=== PATIENT | male | born 1950 | race Caucasian/White ===

== ENCOUNTER 2017-06-22 06:03 | Emergency (ER) | payer MEDICARE ==
[2017-06-22 06:26] LABS: #Basophils 0.1 thou/uL (0.0-0.2); #Eosinphils 0.5 thou/uL (0.0-0.7); #Lymphocytes 2.7 thou/uL (1.20-3.40); #Neutrophils 7.6 thou/uL (1.40-6.50); %Basophils 0.7 % (0.0-1.0); %Eosinophils 3.9 % (0.0-10.0); %Lymphocytes 22.7 % (21.0-51.0); %Monocytes 8.6 % (0.0-10.0); %Neutrophils 64.1 % (42.0-75.0); Hemoglobin 15.3 g/dL (14.0-18.0); Mean Corpuscular HGB CONC 32.8 g/dL (32.0-36.0); Mean Corpuscular Hemoglobin 28.3 pg (27.0-31.0); Mean Corpuscular Volume 86.4 fl (80.0-94.0); Mean Platelet Volume 9.4 fL (7.4-10.4); Platelet Count 239 thou/uL (130-400); RBC Distribution Width 13.1 % (11.5-14.5); Red Blood Cell (RBC) Count 5.39 mill/uL (4.70-6.10); White Blood Cell (WBC) Count 11.8 thou/uL (4.8-10.8)
[2017-06-22 06:50] LABS: CKMB 1.4 ng/mL (0-6.6); Troponin I 0.011 ng/mL (< 0.028)
[2017-06-22 06:50] LABS: Bilirubin Negative (Negative); Blood, Urine Negative (Negative); Clarity CLEAR (Clear); Glucose, Urine (Dipstick) Negative (Negative); Leukocyte Negative (Negative); Nitrite Negative (Negative); Protein, Urine (Dipstick) Negative (Neg-Trace); Specific Gravity, Urine 1.021 (1.002-1.036); Urobilinogen 0.2 mg/dL (0.2-1.0); pH, Urine 5.5 (5.0-9.0)
[2017-06-22 06:53] LABS: ALT (SGPT) 48 U/L (8-55); AST (SGOT) 32 U/L (5-34); Albumin 4.3 g/dL (3.4-4.8); Alkaline Phosphatase 82 U/L (40-150); Anion Gap 16 mmol/L (10-20); BUN (Urea Nitrogen) 16 mg/dL (8.4-25.7); Bilirubin, Total 0.4 mg/dL (0.2-1.2); CK (CPK) 147 U/L (30-200); Calc. Creatinine Clearance 0 mL/min (70-130); Calcium 9.4 mg/dL (7.8-10.44); Carbon Dioxide 25 mmol/L (23-31); Chloride 101 mmol/L (98-107); Estimated GFR-MDRD 69; Globulin 3.2 g/dL (2.4-3.5); Glucose 119 mg/dL (80-115); Lipase 19 U/L (8-78); Potassium 4.1 mmol/L (3.5-5.1); Protein, Total 7.5 g/dL (5.8-8.1); Sodium 138 mmol/L (136-145)
--- NOTE | 2017-06-22 08:08 | RAD ---
CHEST ONE VIEW: History: Dyspnea. Comparison: 08-08-16 FINDINGS: Normal cardiac silhouette. The lungs and pleural spaces are clear. No pneumothorax or osseous abnorma lities. IMPRESSION: No acute cardiopulmonary process. POS: [facility]
[2017-06-22] MEDS ORDERED: Ondansetron HCl/PF 4 MG/2 ML Vial ONE (09:30)
[2017-06-22] MEDS ORDERED: Ondansetron ODT 8 MG TAB ONE (09:31)
--- NOTE | 2017-06-24 13:04 | EKG ---
Test Reason : Blood Pressure : / mmHG Vent. Rate : 080 BPM Atrial Rate : 080 BPM P-R Int : 132 ms QRS Dur : 092 ms QT Int : 364 ms P-R-T Axes : 009 -17 031 degrees QTc Int : 419 ms Normal sinus rhythm Normal ECG Confirmed by GOKUL IBARRA, MADELYN ([id number]), editorial specialist HODAN MALDONADO ([id number]) on 06/24/2017 1:04:21 PM Referred By: Confirmed By:MADELYN HODGSON MD
== END 2017-06-22 09:36 | disposition home or self-care (01) ==
LOC: ERS 06:03
DX: J20.9 Acute bronchitis, unspecified (principal); F20.9 Schizophrenia, unspecified
CPT/HCPCS: 71045; 80053; 81003; 82553; 83605; 83690; 83880; 84484; 85025; 85379; 87040; 87804; 93005; 94640; 96360; J2405; J7620

== ENCOUNTER 2018-04-03 19:30 | Outpatient (CLI) | payer MEDICARE, OTHER | END 2018-04-03 19:31 | disposition home or self-care (01) | LOC: SLEEPLAB 19:30 | PROVIDERS: ATTEND Nurse Practitioner Adult Health | DX: G47.33 Obstructive sleep apnea (adult) (pediatric) (principal); R53.83 Other fatigue; R09.89 Other specified symptoms and signs involving the circulatory and respiratory systems; G31.84 Mild cognitive impairment of uncertain or unknown etiology; R06.83 Snoring; J44.9 Chronic obstructive pulmonary disease, unspecified; E66.9 Obesity, unspecified; G47.10 Hypersomnia, unspecified; Z68.36 Body mass index [BMI] 36.0-36.9, adult | CPT/HCPCS: 95811 ==

== ENCOUNTER 2018-06-15 11:54 | Outpatient (CLI) | payer MEDICARE ==
--- NOTE | 2018-06-15 13:43 | ULT ---
RENAL ULTRASOUND: Indication: History of microhematuria. Comparison: None. FINDINGS: Right kidney measures 11.3 x 4.7 x 5.1 cm. Left kidney measures 12.4 x 6.1 x 6.5 cm. No focal renal l esion or hydronephrosis is evident. Pre void bladder volume is 117 cc. IMPRESSION: No focal renal lesion or hydronephrosis. POS: [facility]
== END 2018-06-15 11:55 | disposition home or self-care (01) ==
LOC: BICULT 11:54
PROVIDERS: ATTEND Urology
DX: R31.29 Other microscopic hematuria (principal)
CPT/HCPCS: 76770